=== PATIENT | male | born 1995 | race Caucasian/White ===

== ENCOUNTER 2017-07-17 21:59 | Emergency (ER) | payer MEDICAID, OTHER ==
[2017-07-17] MEDS: GENTAMICIN 0.3% OPHTH SOL 5 ML BTL OD (23:30)
[2017-07-17] MEDS: CEPHALEXIN 500 MG CAP PO (23:30)
== END 2017-07-17 23:48 | disposition home or self-care (01) ==
LOC: M ED 21:59
DX: L02.211 Cutaneous abscess of abdominal wall (principal); H10.9 Unspecified conjunctivitis; F17.210 Nicotine dependence, cigarettes, uncomplicated
CPT/HCPCS: 99282

== ENCOUNTER 2018-08-02 13:19 | Emergency (ER) | payer MEDICAID, SELFPAY ==
[~2018-08-02] VITALS: Ht 177.8 cm; Wt 63.6 kg
[~2018-08-02 13:19] MED LIST: GENT0.3S36 OD; KEFL500C17 PO
[2018-08-02] MEDS ORDERED: GASTROGRAFIN SOLUTION 30ML (Q9963) As Ordered ONE (14:10)
[2018-08-02] MEDS: GASTROGRAFIN SOLUTION 30ML PO SCH ×2 (14:15→14:48)
[2018-08-02] MEDS ORDERED: ONDANSETRON 4MG/2ML VIAL (J2405) IV ONE (14:15)
[2018-08-02] MEDS ORDERED: NS 1,000 ML IV ONE (14:15)
[2018-08-02] MEDS ORDERED: KETOROLAC 30 MG/ML VIAL (J1885) IV ONE (14:15)
[2018-08-02 14:16] LABS: BASO % 0.3 % (0.0-1.0); EOS # 0.1 10^3/uL (0.0-0.50); EOS % 1.1 % (0.0-3.0); HEMATOCRIT 46.9 % (42.0-52.0); HEMOGLOBIN 15.2 g/dl (13.5-17.5); LYMPH # 1.6 10^3/uL (1.5-6.5); LYMPH % 16.1 % (24.0-44.0); MEAN CORPUSCULAR HEMOGLOBIN 27.2 pg (27.0-33.0); MEAN CORPUSCULAR HGB CONC 32.4 g/dl (32.0-36.5); MEAN CORPUSCULAR VOLUME 83.9 fl (80.0-96.0); MONO # 0.7 10^3/uL (0.0-0.8); MONO % 7.2 % (0.0-5.0); NEUTROPHILS # 7.5 10^3/uL (1.8-7.7); NEUTROPHILS % 74.7 % (36.0-66.0); PLATELET COUNT, AUTOMATED 297 10^3/uL (150-450); RED BLOOD COUNT 5.59 10^6/uL (4.30-6.10)
[2018-08-02 14:54] LABS: ALT/SGPT 24 U/L (12-78); BLOOD UREA NITROGEN 18 MG/DL (7-18); CALCIUM LEVEL 8.8 MG/DL (8.5-10.1); CARBON DIOXIDE LEVEL 23 MEQ/L (21-32); CHLORIDE LEVEL 108 MEQ/L (98-107); CREATININE FOR GFR 0.76 MG/DL (0.70-1.30); GLOMERULAR FILTRATION RATE > 60.0 (>60); GLUCOSE, FASTING 93 MG/DL (70-100); POTASSIUM SERUM 4.4 MEQ/L (3.5-5.1); SODIUM LEVEL 137 MEQ/L (136-145)
[2018-08-02 14:55] LABS: BILIRUBIN,DIRECT < 0.1 MG/DL (0.0-0.2); BILIRUBIN,TOTAL 0.2 MG/DL (0.2-1.0)
[2018-08-02 14:56] LABS: TOTAL PROTEIN 7.5 GM/DL (6.4-8.2)
[2018-08-02 14:59] LABS: LIPASE 130 U/L (73-393)
[2018-08-02] MEDS ORDERED: ISOVUE-370 76% 100ML VIAL (Q9967) As Ordered ONE (15:30)
[2018-08-02] MEDS ORDERED: PROT1TAB2 PO (16:22)
[2018-08-02] MEDS ORDERED: CARA1TAB6 PO (16:22)
[2018-08-02] MEDS ORDERED: ZOFR4TAB16 PO (16:22)
[2018-08-02] MEDS ORDERED: SUCRALFATE 1 GM TAB PO ONE (16:30)
[2018-08-02] MEDS ORDERED: PANTOPRAZOLE 40MG TAB (PROTONIX) PO ONE (16:30)
[2018-08-02 16:35] VITALS: BP 119/64
--- NOTE | 2018-08-02 18:25 | REP ---
CT study of the abdomen and pelvis with IV and oral contrast: History: Right upper quadrant abdomen pain and hematemesis. No comparison study. CT contrast dose: 100 ml of intravenous Isovue 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 The lung bases are clear. The liver and the spleen are normal in size and homogeneous in texture. No adrenal lesion is seen on either side. No pancreatic abnormality is noted. No abnormalities noted in the gallbladder. Kidneys enhance symmetrically and are morphologically intact. Small and large bowel loops are normal in the upper abdomen. A tiny accessory splenule is noted in the left upper quadrant. There is an accessory left renal artery. No other vascular abnormality. Normal-sized small bowel mesenteric lymph nodes are noted. A normal appendix is seen opacified with orally ingested CT contrast. No CT evidence of appendicitis. Its tip is in the right pelvis. Small and large bowel loops are normal in the pelvis. No pelvic mass or adenopathy is seen. Seminal vesicles, prostate and urinary bladder are unremarkable. No abdominal wall defect is seen. No bony destructive lesion. Impression: Unremarkable CT study of the abdomen and pelvis with IV and oral contrast. Normal appendix seen. No acute abdominal abnormality. Electronically Signed by Derrek Horta MD 08/02/2018 08:22 P
== END 2018-08-02 16:38 | disposition home or self-care (01) ==
LOC: M ED 13:19 → EDSEX 13:19 → EDBD 13:19 → M ED 16:38
DX: R10.31 Right lower quadrant pain (principal); K92.0 Hematemesis; K25.9 Gastric ulcer, unspecified as acute or chronic, without hemorrhage or perforation; Z79.899 Other long term (current) drug therapy; F17.210 Nicotine dependence, cigarettes, uncomplicated
CPT/HCPCS: 74177; 80048; 80076; 81001; 83690; 85025; 96361; 96374; 96375; 99284; J1885; J2405; Q9967

== ENCOUNTER 2019-04-28 23:09 | Emergency (ER) | payer SELFPAY ==
[~2019-04-28 23:09] MED LIST changes: +CARA1TAB6 PO; +PROT1TAB2 PO; +ZOFR4TAB16 PO
[2019-04-29 00:29] LABS: HEMATOCRIT 45.7 % (42.0-52.0); HEMOGLOBIN 14.8 g/dl (13.5-17.5); MEAN CORPUSCULAR HEMOGLOBIN 27.8 pg (27.0-33.0); MEAN CORPUSCULAR HGB CONC 32.4 g/dl (32.0-36.5); MEAN CORPUSCULAR VOLUME 85.9 fl (80.0-96.0); PLATELET COUNT, AUTOMATED 306 10^3/uL (150-450); RED BLOOD COUNT 5.32 10^6/uL (4.30-6.10); WHITE BLOOD COUNT 7.7 10^3/uL (4.0-10.0)
[2019-04-29 01:00] LABS: ACETAMINOPHEN LEVEL < 2.0 UG/ML (10.0-30.0); ALBUMIN 4.1 GM/DL (3.2-5.2); ALT/SGPT 16 U/L (12-78); AMPHETAMINES LEVEL URINE POSITIVE (NEGATIVE); BARBITURATES URINE NEGATIVE (NEGATIVE); BENZODIAZEPINES URINE NEGATIVE (NEGATIVE); BILIRUBIN,DIRECT 0.1 MG/DL (0.0-0.2); BILIRUBIN,TOTAL 0.3 MG/DL (0.2-1.0); BLOOD UREA NITROGEN 18 MG/DL (7-18); CANNABINOIDS URINE POSITIVE (NEGATIVE); CARBON DIOXIDE LEVEL 26 MEQ/L (21-32); CHLORIDE LEVEL 107 MEQ/L (98-107); COCAINE METABOLITE URINE POSITIVE (NEGATIVE); CREATININE FOR GFR 0.93 MG/DL (0.70-1.30); ETHYL ALCOHOL (ETHANOL) < 0.003 % (0.000-0.010); GLOMERULAR FILTRATION RATE > 60.0 (>60); GLUCOSE, FASTING 81 MG/DL (70-100); METHADONE URINE NEGATIVE (NEGATIVE); OPIATES URINE NEGATIVE (NEGATIVE); PHENCYCLIDINE URINE NEGATIVE (NEGATIVE); POTASSIUM SERUM 3.7 MEQ/L (3.5-5.1); SALICYLATE LEVEL < 1.7 MG/DL (5.0-30.0); SODIUM LEVEL 140 MEQ/L (136-145); THYROID STIMULATING HORMONE 0.668 uIU/ML (0.358-3.740); TOTAL PROTEIN 7.5 GM/DL (6.4-8.2)
[2019-04-29 02:56] VITALS: BP 127/79
== END 2019-04-29 03:09 | disposition home or self-care (01) ==
LOC: M ED 23:09
DX: F31.9 Bipolar disorder, unspecified (principal)
CPT/HCPCS: 80048; 80076; 80307; 84443; 85027; 99284; G0480

== ENCOUNTER → 2019-12-06 | Outpatient (CLI) | payer OTHER, SELFPAY ==
--- NOTE | 2020-01-08 10:25 | REP ---
FOCUSED LEFT BREAST ULTRASOUND HISTORY: Left breast lump x4 months. Painful to touch. FINDINGS: Focused left breast sonography is performed where the patient indicates a lump. There is some hypoechoic tissue measuring approximately 4 x 4 x 1.1 cm posterior to the left nipple. This is compatible with gynecomastia. No mass, cyst, or acoustic shadowing is seen. Contralateral retroareolar scanning on the right shows similar, but less prominent retroareolar soft tissue. IMPRESSION: BI-RADS Category 2 benign findings. Gynecomastia pattern, left greater than right. Clinical follow-up is advised. CHANDNI
== END ==
LOC: M RAD 12:47
PROVIDERS: ATTEND Surgery
DX: R92.8 Other abnormal and inconclusive findings on diagnostic imaging of breast (principal)

== ENCOUNTER → 2020-02-27 | Outpatient (REF) | payer OTHER | LOC: M LAB REF 15:19 | PROVIDERS: ATTEND Surgery | DX: U07.1 COVID-19 (principal) ==